=== PATIENT | female | born 1975 | race Caucasian/White ===

== ENCOUNTER 2017-04-21 17:42 | Emergency (ER) | payer OTHER ==
[2017-04-21 17:59] VITALS: BP 134/101
--- NOTE | 2017-04-21 20:06 | UC ---
Respiratory Complaint HPI - HPI Summary HPI Summary: Patient presents to the with CC of cough, congestion, runny nose, ear pain, eye pain, PRAJAPATI and nasal congestion. Patient is a smoker and immunocompromised - on Methotrexate for RA. She notes to symptoms starting 3 days ago, have consistently worsened. She has a hx of bronchitis. She notes to sick contacts but denies travel. Denies fevers, sweats and chills. She denies abdominal pain , N/V/C/D. Denies body aches. Flu shot not UTD. - History of Current Complaint Hx Obtained From: Patient Hx Last Menstrual Period: 04/06/17 ?: No Onset/Duration: Sudden Onset Timing: Constant Severity Initially: Mild Severity Currently: Mild Pain Intensity: 5 Pain Scale Used: 0-10 Numeric Character: Cough: Nonproductive Alleviating Factors: Bronchodilator Associated Signs And Symptoms: Positive: Dyspnea, Wheezing, URI, Nasal Congestion, Hoarseness, Sinus Discomfort - Risk Factors Pulmonary Embolism Risk Factors: Negative Cardiac Risk Factors: Negative Tuberculosis Risk Factors: Corticosteriod Use <Shila Buckner - Last Filed: 04/21/17 20:01> <Tasha Alegre - Last Filed: 04/21/17 21:48> - History of Current Complaint Chief Complaint: UCRespiratory Stated Complaint: COUGH Time Seen by Provider: 04/21/17 18:41 - Allergies/Home Medications Allergies/Adverse Reactions: Allergies Allergy/AdvReac Type Severity Reaction Status Date / Time Beef Allergy Allergy Mild Swelling Verified 04/21/17 17:59 Dust Mite Extract Allergy Mild Runny Nose Verified 04/21/17 17:59 Pollen Extract Allergy Mild Runny Nose Verified 04/21/17 17:59 Home Medications: Home Medications buPROPion TAB* [Wellbutrin TAB*] 100 mg PO DAILY 04/21/17 [History Confirmed 09/06] PMH/Surg Hx/FS Hx/Imm Hx Previously Healthy: Yes - Surgical History Surgical History: Yes Surgery Procedure, Year, and Place: 2007 Tubal Ligation. 03/2008 GALLBLADDER. 05/19/13 LEEP - Family History Known Family History: Positive: None - Social History Occupation: Employed Full-time Lives: With Family Alcohol Use: Occasionally Substance Use Type: None Smoking Status (MU): Light Every Day Tobacco Smoker Type: Cigarettes Amount Used/How Often: 1/2 ppd Length of Time of Smoking/Using Tobacco: 7 years Have You Smoked in the Last Year: No <Shila Buckner - Last Filed: 04/21/17 20:01> Review of Systems Constitutional: Negative Skin: Negative Eyes: Negative ENT: Sore Throat, Ear Ache, Nasal Discharge, Sinus Congestion, Sinus Pain/ Tenderness Respiratory: Shortness Of Breath, Cough Cardiovascular: Negative Motor: Negative Neurovascular: Negative Neurological: Negative Psychological: Negative Is Patient Immunocompromised?: No All Other Systems Reviewed And Are Negative: Yes <Shila Buckner - Last Filed: 04/21/17 20:01> Physical Exam Triage Information Reviewed: Yes Appearance: Well-Appearing, Well-Nourished Vital Signs: Initial Vital Signs Temp 97.9 F 04/21/17 17:54 Pulse 73 04/21/17 17:54 Resp 18 04/21/17 17:54 BP 134/101 04/21/17 17:54 Pulse Ox 98 04/21/17 17:54 Vital Signs Reviewed: Yes Eye Exam: Normal Eyes: Positive: Conjunctiva Clear ENT: Positive: Pharyngeal erythema, Nasal congestion, Nasal drainage. Negative : Tonsillar exudate, Muffled/hoarse voice Neck exam: Normal Neck: Positive: Supple, No Lymphadenopathy Respiratory Exam: Normal Respiratory: Positive: Chest non-tender Cardiovascular Exam: Normal Cardiovascular: Positive: RRR Musculoskeletal Exam: Normal Musculoskeletal: Positive: Strength Intact Psychological Exam: Normal Psychological: Positive: Normal Response To Family Skin Exam: Normal <Shila Buckner - Last Filed: 04/21/17 20:01> Vital Signs: Initial Vital Signs Temp 97.9 F 04/21/17 17:54 Pulse 73 04/21/17 17:54 Resp 18 04/21/17 17:54 BP 134/101 04/21/17 17:54 Pulse Ox 98 04/21/17 17:54 <Tasha Alegre - Last Filed: 04/21/17 21:48> UC Diagnostic Evaluation - Laboratory O2 Sat by Pulse Oximetry: 98 <Shila Buckner - Last Filed: 04/21/17 20:01> Respiratory Course/Dx - Course Course Of Treatment: Patient is evaluated for cough, congestion and runny nose. She denies fevers, sweats or chills. Appear not to be flu d/t no fever or abdominal symptoms. She is given z-burak and robitussin with codeine for cough worse at night and given albuterol for cough. she is OK with discharge. - Differential Dx/Diagnosis Differential Diagnosis/HQI/PQRI: Asthma, Bronchitis, Sinusitis Provider Diagnoses: Bronchitis <Shila Buckner - Last Filed: 04/21/17 20:01> Discharge <Shila Buckner - Last Filed: 04/21/17 20:01> <Tasha Alegre - Last Filed: 04/21/17 21:48> - Discharge Plan Condition: Stable Disposition: HOME Prescriptions: Albuterol HFA INHALER* [Ventolin HFA Inhaler*] 1 puff INH Q4H PRN #1 mdi PRN Reason: Cough Azithromyxin BURAK (NF) [Z-Burak (Zithromax) 250 mg tabs #6] 2 tab PO .TODAY, THEN 1 DAILY #6 tab guaiFENesin/CODIEN 100MG-10MG* [Robitussin AC 100Mg-10Mg*] 10 ml PO BEDTIME PRN #100 udc MDD 10 PRN Reason: Cough Patient Education Materials: Acute Bronchitis (ED) Referrals: Joann Zhang MD [Primary Care Provider] - Additional Instructions: Albuterol inhaler as needed for cough Z-burak as prescribed robitussin with codeine at bedtime Humidifier in the home will help Attestation Statement User Type: Provider - I was available for consult. This patient was seen by the FLORI. The patient was not presented to, seen by, or examined by me. -Hanh <Tasha Alegre - Last Filed: 04/21/17 21:48>
== END 2017-04-21 19:05 | disposition home or self-care (01) ==
LOC: UCEAST 17:42
DX: J40 Bronchitis, not specified as acute or chronic (principal); F17.210 Nicotine dependence, cigarettes, uncomplicated; M06.9 Rheumatoid arthritis, unspecified; Z87.09 Personal history of other diseases of the respiratory system
CPT/HCPCS: 99212; G0463

== ENCOUNTER 2017-08-13 19:53 | Emergency (ER) | payer OTHER ==
[2017-08-13 20:04] VITALS: BP 143/84
[2017-08-13] MEDS ORDERED: Acetaminophen TAB* 325 MG PO ONE (20:16)
[2017-08-13] MEDS ORDERED: Ondansetron ODT TAB* 4 MG PO ONE (20:16)
--- NOTE | 2017-08-13 20:44 | UC ---
Adam Aguilar Natalie, scribed for Tam Landry MD on 08/13/17 at 2023 . Respiratory Complaint HPI - HPI Summary HPI Summary: The pt is a 42 y/o F presenting to UC c/o cough with sudden onset starting last night. The pt states I feel awful. The pain is rated 7/10. 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 Pt additionally c/o vomiting, fever (102F) , chest pain, rib pain, and ear ache. - History of Current Complaint Chief Complaint: UCRespiratory Stated Complaint: FEVER Time Seen by Provider: 08/13/17 20:12 Hx Obtained From: Patient Hx Last Menstrual Period: 08/12/17 Onset/Duration: Sudden Onset, Lasting Hours - started last night, Still Present Severity Initially: Moderate Severity Currently: Moderate Pain Intensity: 7 Pain Scale Used: 0-10 Numeric Character: Cough: Nonproductive Associated Signs And Symptoms: Positive: Fever, Pleuritic Chest Pain, Sinus Discomfort - Allergies/Home Medications Allergies/Adverse Reactions: Allergies Allergy/AdvReac Type Severity Reaction Status Date / Time Beef Allergy Allergy Mild Swelling Verified 04/21/17 17:59 Dust Mite Extract Allergy Mild Runny Nose Verified 04/21/17 17:59 Pollen Extract Allergy Mild Runny Nose Verified 04/21/17 17:59 Home Medications: Home Medications Clobetasol Propionate Emulsion [Clobetasol Propionate] 08/13/17 [History] PMH/Surg Hx/FS Hx/Imm Hx - Surgical History Surgical History: Yes Surgery Procedure, Year, and Place: 2007 Tubal Ligation. 03/2008 GALLBLADDER. 05/19/13 LEEP - Family History Known Family History: Negative: Cardiac Disease, Diabetes - Social History Alcohol Use: Rare Substance Use Type: None Smoking Status (MU): Light Every Day Tobacco Smoker Type: Cigarettes Amount Used/How Often: 1/2 ppd Length of Time of Smoking/Using Tobacco: 7 years Have You Smoked in the Last Year: No Review of Systems Constitutional: Fever ENT: Ear Ache, Sinus Congestion Respiratory: Cough Cardiovascular: Chest Pain Gastrointestinal: Abdominal Pain - rib pain, Vomiting All Other Systems Reviewed And Are Negative: Yes Physical Exam Triage Information Reviewed: Yes Appearance: No Pain Distress, Ill-Appearing - mildly Vital Signs: Initial Vital Signs Temp 100.3 F 08/13/17 19:56 Pulse 120 08/13/17 19:56 Resp 16 08/13/17 19:56 BP 143/84 08/13/17 19:56 Pulse Ox 98 08/13/17 19:56 Vital Signs Reviewed: Yes Eye Exam: Normal ENT: Positive: Other - posterior pharynx erythema Neck: Positive: Supple, Nontender Respiratory: Positive: Lungs clear, Other: - CTA, breath sounds present Cardiovascular: Positive: RRR Abdomen Description: Positive: Nontender, Soft Bowel Sounds: Positive: Present Musculoskeletal Exam: Normal Musculoskeletal: Positive: Strength Intact, ROM Intact Neurological: Positive: Other: - normal, sensory/motor intact, A&O x3 Psychological: Positive: Other: - affect/mood appropriate Skin: Positive: Other - warm, color reflects adequate perfusion UC Diagnostic Evaluation - Laboratory O2 Sat by Pulse Oximetry: 98 Respiratory Course/Dx - Course Course Of Treatment: BP noted and advised to follow up with PCP. Medications reviewed. Allergies noted. - Differential Dx/Diagnosis Provider Diagnoses: INFLUENZA Discharge - Discharge Plan Condition: Stable Disposition: HOME Prescriptions: Ondansetron ODT TAB* [Zofran 4 MG Odt TAB*] 4 mg PO Q6H PRN #10 tab.odt PRN Reason: Nausea Oseltamivir CAP* [Tamiflu CAP*] 75 mg PO BID #10 cap Patient Education Materials: Influenza (ED) Referrals: Joann Zhang MD [Primary Care Provider] - Additional Instructions: FOLLOW UP WITH YOUR DOCTOR. GET RECHECKED FOR ANY WORSENING OF YOUR CONDITION OR QUESTIONS OR CONCERNS. The documentation as recorded by the Adam gresham Natalie accurately reflects the service I personally performed and the decisions made by me, Tam Landry MD.
== END 2017-08-13 20:48 | disposition home or self-care (01) ==
LOC: UCEAST 19:53
DX: J11.1 Influenza due to unidentified influenza virus with other respiratory manifestations (principal); Z90.49 Acquired absence of other specified parts of digestive tract; F17.210 Nicotine dependence, cigarettes, uncomplicated
CPT/HCPCS: 87502; 99212; A9270-GY; G0463

== ENCOUNTER 2017-09-24 09:42 | Emergency (ER) | payer OTHER ==
--- OUTSIDE RECORDS SUMMARY | 2017-09-24 10:10 | XMS REPORT ---
:1975 Author Organization [facility]ly [facility] Address [address] [place] [address] Care Team Providers Name Role Phone Mayra Darden Unavailable Unavailable PROBLEMS Type Condition ICD9-CM FLF15-XT Onset Condition SNOMED Code Code Code Dates Status Problem Polyp of corpus N84.0 Active 59532829 uteri Problem Dysmenorrhea, N94.6 Active 342643083 unspecified Problem Nicotine dependence, F17.210 Active 885049474 cigarettes, uncomplicated Problem Family history of Z80.49 Active 558340860 malignant neoplasm of other genital organs Problem Frequency of R35.0 Active 375019204 micturition Problem Dysuria R30.0 Active 08165652 Problem Excessive and N92.0 Active 307164503 frequent menstruation with regular cycle Problem Other rheumatoid M05.89 Active 07574687 arthritis with rheumatoid factor of multiple sites Problem 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 103 Aug, Excessive and frequent OBGYN [facility], menstruation with regular [place] [id number] cycle N92.0 ; Encounter for routine checking of intrauterine contraceptive device Z30.431 and Family history of malignant neoplasm of other genital organs Z80.49 [facility] 103 Jul, OBGYN [place] [id number] [facility] 103 Jul, Encounter for OBGYN [facility], gynecological examination [place] [id number] (general) (routine) without abnormal findings Z01.419 ; Frequency of micturition R35.0 ; Encounter for screening mammogram for malignant neoplasm of breast Z12.31 ; Unspecified urinary incontinence R32 ; Excessive and frequent menstruation with regular cycle N92.0 and Nicotine dependence, cigarettes, uncomplicated F17.210 [facility] Jun, [facility]YN [facility] [place] [id number] [facility] [address] Jun, Encounter for OBGYN [address] [place], gynecological examination [place] [id number] (general) (routine) without abnormal findings Z01.419 ; Encounter for screening for malignant neoplasm of cervix Z12.4 ; Encounter for screening mammogram for malignant neoplasm of breast Z12.31 and Other rheumatoid arthritis with rheumatoid factor of multiple sites M05.89 [facility] 103 Aug, OBGYN [facility], [place] [id number] [facility] 103 Aug, Abnormal uterine and OBGYN [facility], vaginal bleeding, [place] [id number] unspecified N93.9 ; Encounter for routine checking of intrauterine contraceptive device Z30.431 and Unspecified ovarian cysts N83.20 [facility] 103 Aug, Unspecified ovarian cysts OBGYN [facility], N83.20 and Encounter for [place] [id number] routine checking of intrauterine contraceptive device Z30.431 [facility] Jun, Abnormal uterine and OBGYN [facility], vaginal bleeding, [place] [id number] unspecified N93.9 ; Encounter for routine checking of intrauterine contraceptive device Z30.431 and Unspecified ovarian cysts N83.20 [facility] 103 Jun, Abnormal uterine and OBGYN [facility], vaginal bleeding, [place] [id number] unspecified N93.9 ; Encounter for routine checking of intrauterine contraceptive device Z30.431 and Unspecified ovarian cysts N83.[address] 02 Jun, [address] [place], gynecological examination [place] [id number] (general) (routine) without abnormal findings Z01.419 ; Encounter for screening for malignant neoplasm of cervix Z12.4 and Abnormal uterine and vaginal bleeding, unspecified N93.9 [facility] 103 25 May, [facility] examination [place] [id number] (general) (routine) without abnormal findings Z01.[address] Feb, Menorrhagia [address] [place], Dysmenorrhea 625.3 [place] [id number] [facility] 103 Jan, [facility] [place] [id number] [facility] 103 Dec, [facility]AL AND/[facility], REININSERTION V25.42 [place] [id number] [facility] November, CONTRACEPTIVE MANGMT NOS [facility], V25.9 [place] [id number] [facility] 103 November, Menorrhagia 626.2 ; OBN [facility], Abnormal Pap smear cervix [place] [id number] with high-grade squamous intraepithelial lesion 795.04 and Dysmenorrhea 625.3 [facility] 103 Aug, Menorrhagia 626.2 ; OBGYN [facility], Dysmenorrhea 625.3 and [place] [id number] Tobacco use disorder 305.1 [facility] 103 May, Menorrhagia 626.2 ; PAP [facility], SMEAR W/O ACCOUNT RETENTION REPRESENTATIVE EXAM V76.2 ; [place] [id number] Endometrial polyp 621.0 ; Dysmenorrhea 625.3 ; Tobacco use disorder 305.1 and CERVICAL DYSPLASIA MILD (PATRICIA II) 622.12 [facility] 103 May, OBGYN [facility], [place] [id number] [facility] 103 May, Menorrhagia 626.2 ; OBGYN [facility], Endometrial polyp 621.0 ; [place] [id number] Dysmenorrhea 625.3 ; Tobacco use disorder 305.1 and CERVICAL DYSPLASIA MILD (PATRICIA II) 622.12 [facility] 103 Feb, Menorrhagia 626.2 ; OBGYN [facility], Endometrial polyp 621.0 ; [place] [id number] Dysmenorrhea 625.3 and Tobacco use disorder 305.1 [facility] [address] [place], Jan, Medical Center [place] [id number] [facility] 103 Jan, Menorrhagia 626.2 ; OBGYN [facility], Endometrial polyp 621.0 ; [place] [id number] Dysmenorrhea 625.3 and Tobacco use disorder 305.1 [facility] 103 Jan, OBGYN [facility], [place] [id number] [facility] 103 Jan, [place] [id number] [place] [facility] Jan, Menorrhagia 626.2 ; OBN [address] [place], Dysmenorrhea 625.3 and [place] [id number] Tobacco use disorder 305.1 [place] [facility] [address] Dec, Menorrhagia 626.2 ; OBGYN [address] [place], Dysmenorrhea 625.3 and [place] [id number] Tobacco use disorder 305.1 [facility] 103 Dec, Menorrhagia 626.2 ; OBGYN [facility], Dysmenorrhea 625.3 and [place] [id number] Tobacco use disorder 305.1 [facility] 103 Dec, Menorrhagia 626.2 ; OBGYN [facility], Dysmenorrhea 625.3 and [place] [id number] Endometrial polyp 621.0 [place] [facility] 103 10 Dec, 2013 OBGYN [place], [place] [id number] [facility] 103 10 Dec, 2013 Menorrhagia 626.2 ; OBGYN [facility], Dysmenorrhea 625.3 and [place] [id number] Tobacco use disorder 305.1 [place] [facility] 103 10 Dec, 2013 Menorrhagia 626.2 and OBGYN [facility], Dysmenorrhea 625.3 [place] [id number] [place] [facility] [address] [facility] November, CERVICAL DYSPLASIA MILD [address]BGYN [address] [place], (PATRICIA II) 622.12 ; [place] [id number] Menorrhagia 626.2 and Dysmenorrhea 625.3 [place] [facility] [address] [place] [facility] May, CERVICAL DYSPLASIA MILD [address]BGYN [address] [place], (PATRICIA II) 622.12 [place] [id number] [facility] [address] [place], Apr, Medical Center [place] [id number] [facility] 103 Apr, CERVICAL D[facility]PLASIA MILD [facility], (PATRICIA II) 622.12 [place] [id number] [facility] 103 Apr, [place] [id number] [facility] 103 Apr, [place] [id number] [facility] 103 Apr, [place] [id number] [facility] 103 Apr, CERVICAL DYSPLASIA MILD [facility], (PATRICIA II) 622.12 and [place] [id number] HEMATURIA NOS 599.70 [place] [facility] 103 Mar, [place] [id number] [place] [facility] 103 Mar, Vulvadynia 625.9 and OBGYN [facility], Dysuria 788.1 [place] [id number] [facility] 103 20 Mar, 2013 Abnormal Pap smear of OBGYN [facility], cervix with high-grade [place] [id number] squamous intraepithelial lesio 795.04 ; FM HX OVARY MALIGNANCY V16.41 and FM HX GENITAL MALIG NEC V16.49 IMMUNIZATIONS No Known Immunizations SOCIAL HISTORY Never Assessed REASON FOR REFERRAL FUNCTIONAL STATUS PLAN OF CARE Activity Details Follow Up annual 08-08, lab slip Reason: Pending Test CBC VITAL SIGNS Height 64 in 2017-09-16 Weight 156 lbs 2017-09-16 BMI 26.77 kg/m2 2017-09-16 Blood pressure systolic 122 mm Hg 2017-09-16 Blood pressure diastolic 80 mm Hg 2017-09-16 MEDICATIONS Medication Instructions Dosage Frequency Start End Duration Status Date Date Mirena 52 mg by intrauteral 1 ea Active administration once clobetasol applied topically 1 nolan 12h Active topical 0.05% 2 times a day Flonase 50 intranasally BID 1 12h Active mcg/inh spray(s) methotrexate orally once a week 6 tab(s) Active Wellbutrin 100 orally qd 1 tab(s) 24h 30 day(s) Active mg PROCEDURES No Known procedures RESULTS No Results REASON FOR VISIT fu to us for heavy periods MEDICAL (GENERAL) HISTORY Type Description Date Medical History RA Medical History Depression/ Axiety Medical History Chronic Pain in joints Medical History hematuria - sees urologist Medical History psoriatic arthritis Surgical History cholecystectomy Surgical History tubal ligation Surgical History LEEP 05-19-13 Surgical History hysteroscopy/D&C/polypectomy/myometrial sampling Hospitalization History Childbirth 1998 Hospitalization History childbirth 2000 Hospitalization History childbirth 2005 Hospitalization History childbirth 2007
[2017-09-24 10:20] VITALS: BP 136/91
--- NOTE | 2017-09-24 10:26 | UC ---
Throat Pain/Nasal Bon HPI - HPI Summary HPI Summary: Pt presents with sore throat since last night - getting worse today. She had a low grade fever last night, but has not checked it today. Feels significant pain with swallowing, but is able to eat and drink. No cough, SOB, chest pain. - History of Current Complaint Chief Complaint: UCGeneralIllness Stated Complaint: SORE THROAT EAR PAIN Time Seen by Provider: 09/24/17 10:25 Hx Obtained From: Patient Hx Last Menstrual Period: 09/17/17 ?: No Onset/Duration: Sudden Onset Severity: Severe Pain Intensity: 9 Pain Scale Used: 0-10 Numeric - Allergies/Home Medications Allergies/Adverse Reactions: Allergies Allergy/AdvReac Type Severity Reaction Status Date / Time Beef Containing Products Allergy Mild Swelling Verified 09/24/17 10:10 pollen extracts Allergy Mild Runny Nose Verified 09/24/17 10:10 dust mites Allergy Mild Runny Nose Uncoded 09/24/17 10:10 PMH/Surg Hx/FS Hx/Imm Hx Respiratory History: Asthma Psychological History: Anxiety, Depression - Surgical History Surgical History: Yes Surgery Procedure, Year, and Place: 2007 Tubal Ligation. 03/2008 GALLBLADDER removal. 05/19/13 LEEP - Family History Known Family History: Positive: None Negative: Cardiac Disease, Diabetes - Social History Occupation: Employed Full-time Lives: With Family Alcohol Use: Rare Substance Use Type: None Smoking Status (MU): Light Every Day Tobacco Smoker Type: Cigarettes Amount Used/How Often: 1/2 ppd Length of Time of Smoking/Using Tobacco: 7 years Have You Smoked in the Last Year: No Review of Systems Constitutional: Fever Skin: Negative Eyes: Negative ENT: Sore Throat Respiratory: Negative Cardiovascular: Negative Gastrointestinal: Negative Neurological: Negative Psychological: Negative All Other Systems Reviewed And Are Negative: Yes Physical Exam - Summary Physical Exam Summary: GENERAL: NAD. WDWN. No pain distress. SKIN: No rashes, sores, ulcers, masses, lesions. HEENT: Head: AT/NC Eyes: Conjunctiva clear without inflammation or discharge. Ears: Hearing grossly normal. TMs intact, no bulging, erythema, or edema. Nose: Nasal mucosa pink and moist. NTTP maxillary and frontal sinus. Throat: Posterior oropharynx moderate erythema and 3+ tonsillar enlargement with moderate exudates. Uvula midline. No hoarse voice or muffled voice. NECK: Supple. TTP anterior LAD. CHEST: CTAB. No r/r/w. No accessory muscle use. Breathing comfortably and in no distress. CV: RRR. Without m/r/g. Pulses intact. Brisk cap refill. NEURO: Alert. CN II-XII grossly intact. PSYCH: Age appropriate behavior. Triage Information Reviewed: Yes Vital Signs: Initial Vital Signs Temp 98.8 F 09/24/17 10:13 Pulse 128 09/24/17 10:13 Resp 16 09/24/17 10:13 BP 136/91 09/24/17 10:13 Pulse Ox 98 09/24/17 10:13 Throat Pain/Nasal Course/Dx - Course Course Of Treatment: POC strep positive. Amoxicillin. - Differential Dx/Diagnosis Provider Diagnoses: Strep pharyngitis Discharge - Discharge Plan Condition: Stable Disposition: HOME Prescriptions: Amoxicillin PO (*) [Amoxicillin 500 MG CAP*] 500 mg PO Q12H #20 cap Patient Education Materials: Strep Throat (DC) Forms: *Work Release Referrals: Joann Zhang MD [Primary Care Provider] - Additional Instructions: If you develop a fever, shortness of breath, chest pain, new or worsening symptoms - please call your PCP or go to the ED. Your blood pressure was high at todays visit. Please see your primary provider within 4 weeks for recheck and re-evaluation.
== END 2017-09-24 11:08 | disposition home or self-care (01) ==
LOC: UCEAST 09:42
DX: J02.0 Streptococcal pharyngitis (principal); J45.909 Unspecified asthma, uncomplicated; F41.9 Anxiety disorder, unspecified; F32.9 Major depressive disorder, single episode, unspecified; F17.210 Nicotine dependence, cigarettes, uncomplicated
CPT/HCPCS: 87651; 99212; G0463

== ENCOUNTER 2018-04-02 12:54 | Emergency (ER) | payer BC, OTHER ==
[2018-04-02 13:09] VITALS: BP 124/66
--- NOTE | 2018-04-02 13:31 | UC ---
Skin Complaint HPI - HPI Summary HPI Summary: 42-year-old female with complaint of potential insect bite. stung by an unknown insect on neck took benadryl 25mg po at 12n and arrives feeling off. Denies any fever as well as denies any discharge from the area with the affected insect bite. She does have a history of bee sting allergy where she does get swelling at the site where the sting took place but never previously needed to use an EpiPen or ever went into anaphylaxis. Bite that she had could have been on the but she is not sure it could've been a different insect she never saw it. She is concerned as her mother was concerned for her that this could worsen but this bite occurred almost 3 hours ago and she took Benadryl and feels fine and has no problems breathing and no significant swelling on the right part of the neck where she was bit or stung. [ End ] - History of Current Complaint Chief Complaint: UCGeneralIllness Time Seen by Provider: 04/02/18 13:28 Stated Complaint: INSECT BITE Hx Obtained From: Patient Hx Last Menstrual Period: 03/20/18 Onset/Duration: Sudden Onset Pain Intensity: 6 Character: Swelling, Pruritus Related History: Possible Reaction to: Insect - Allergy/Home Medications Allergies/Adverse Reactions: Allergies Allergy/AdvReac Type Severity Reaction Status Date / Time Beef Containing Products Allergy Mild Swelling Verified 04/02/18 13:07 pollen extracts Allergy Mild Runny Nose Verified 04/02/18 13:07 dust mites Allergy Mild Runny Nose Uncoded 04/02/18 13:07 Review of Systems Constitutional: Negative Skin: Negative, Other - insect bite Eyes: Negative ENT: Negative Respiratory: Negative Cardiovascular: Negative Gastrointestinal: Negative Genitourinary: Negative Motor: Negative Neurovascular: Negative Musculoskeletal: Negative Neurological: Negative Psychological: Negative Is Patient Immunocompromised?: No All Other Systems Reviewed And Are Negative: Yes PMH/Surg Hx/FS Hx/Imm Hx Previously Healthy: Yes - Surgical History Surgical History: Yes Surgery Procedure, Year, and Place: 2007 Tubal Ligation. 03/2008 GALLBLADDER removal. 05/19/13 LEEP - Family History Known Family History: Positive: None Negative: Cardiac Disease, Diabetes - Social History Occupation: Employed Full-time Lives: With Family Alcohol Use: Rare Substance Use Type: None Smoking Status (MU): Former Smoker Type: Cigarettes Amount Used/How Often: 1/2 ppd Length of Time of Smoking/Using Tobacco: 7 years Have You Smoked in the Last Year: No Physical Exam Triage Information Reviewed: Yes Appearance: Well-Appearing, No Pain Distress, Well-Nourished Vital Signs: Initial Vital Signs Temp 98 F 04/02/18 13:04 Pulse 91 04/02/18 13:04 Resp 16 04/02/18 13:04 BP 124/66 04/02/18 13:04 Pulse Ox 100 04/02/18 13:04 Vital Signs Reviewed: Yes Eyes: Positive: Conjunctiva Clear ENT: Positive: Hearing grossly normal Neck exam: Normal Neck: Positive: Supple, Nontender, No Lymphadenopathy Respiratory Exam: Normal Respiratory: Positive: Chest non-tender, Lungs clear, Normal breath sounds, No respiratory distress. Negative: Respiratory distress, Decreased breath sounds, Crackles, Rhonchi, Stridor, Wheezing Cardiovascular Exam: Normal Musculoskeletal Exam: Normal Neurological Exam: Normal Psychological Exam: Normal Skin Exam: Normal Skin: Positive: Other - Small punctate less than 1 mm barely noticeable lesion right lateral neck. no hives, no induration, no streaking, no bleeding no ecchymosis. Course/Dx - Course Course Of Treatment: At this time no respiratory distress or indication for steroids or EpiPen. Use Benadryl Entocort pack and that has helped so far. Additional insect bite or sting occurred almost 3 hours ago and she is doing just fine with no respiratory distress and normal vital signs. I advised to continue with cool pack and Benadryl. Patient declined steroids and I do not think that she necessarily needs and at this time. She is asking for an EpiPen and we will give her one. - Differential Diagnoses - Skin Complaint Differential Diagnoses: Allergic Reaction, Local Allergic Reaction - Diagnoses Provider Diagnoses: insect bite / sting right lateral neck Discharge - Sign-Out/Discharge Documenting (check all that apply): Patient Departure All imaging exams completed and their final reports reviewed: No Studies - Discharge Plan Condition: Good Disposition: HOME Prescriptions: EPINEPHrine [Epipen 2-Burak] 0.3 mg IM SEE INSTRUCTIONS #1 inj Patient Education Materials: Insect Bite or Sting (ED) Referrals: Brianna Epstein MD [Primary Care Provider] - 4 Days Additional Instructions: Please continue with Benadryl as we discussed and if there are any concerns return for further evaluation. - Billing Disposition and Condition Condition: GOOD Disposition: Home
== END 2018-04-02 14:15 | disposition home or self-care (01) ==
LOC: UCEAST 12:54
DX: S10.96XA Insect bite of unspecified part of neck, initial encounter (principal); W57.XXXA Bitten or stung by nonvenomous insect and other nonvenomous arthropods, initial encounter; Y93.9 Activity, unspecified; Y92.9 Unspecified place or not applicable; Z87.891 Personal history of nicotine dependence
CPT/HCPCS: 99212; G0463

== ENCOUNTER 2018-07-22 19:25 | Emergency (ER) | payer BC ==
[2018-07-22 20:15] VITALS: BP 137/96
--- NOTE | 2018-07-22 20:23 | UC ---
Throat Pain/Nasal Bon HPI - HPI Summary HPI Summary: uri, body aches, fever for 1 day - History of Current Complaint Chief Complaint: UCGeneralIllness Stated Complaint: URI Time Seen by Provider: 07/22/18 20:10 Hx Obtained From: Patient Hx Last Menstrual Period: 03/20/18 ?: No Onset/Duration: Sudden Onset, Lasting Days - 1, Still Present Pain Intensity: 8 Pain Scale Used: 0-10 Numeric Cough: None Associated Signs & Symptoms: Positive: Nasal Discharge, Fever - Allergies/Home Medications Allergies/Adverse Reactions: Allergies Allergy/AdvReac Type Severity Reaction Status Date / Time Beef Containing Products Allergy Mild Swelling Verified 07/22/18 20:15 pollen extracts Allergy Mild Runny Nose Verified 07/22/18 20:15 dust mites Allergy Mild Runny Nose Uncoded 07/22/18 20:15 Home Medications: Home Medications Cetirizine* [ZyrTEC 10 MG TAB*] 10 mg PO DAILY 07/22/18 [History Confirmed 07/22] Cholecalciferol TAB* [Vitamin D TAB*] 1,000 units PO DAILY 07/22/18 [History Confirmed 07/22/18] buPROPion TAB* [Wellbutrin TAB*] 100 mg PO DAILY 07/22/18 [History Confirmed 09/08] PMH/Surg Hx/FS Hx/Imm Hx Previously Healthy: No Psychological History: Depression - Surgical History Surgical History: Yes Surgery Procedure, Year, and Place: 2007 Tubal Ligation. 03/2008 GALLBLADDER removal. 05/19/13 LEEP - Family History Known Family History: Positive: None Negative: Cardiac Disease, Diabetes - Social History Occupation: Employed Full-time Lives: With Family Alcohol Use: Rare Substance Use Type: None Smoking Status (MU): Former Smoker Type: Cigarettes Amount Used/How Often: 1/2 ppd Length of Time of Smoking/Using Tobacco: 7 years Have You Smoked in the Last Year: No Review of Systems All Other Systems Reviewed And Are Negative: Yes Constitutional: Positive: Fever, Chills, Fatigue Skin: Positive: Negative Eyes: Positive: Negative ENT: Positive: Sore Throat, Ear Ache, Nasal Discharge Respiratory: Positive: Cough Cardiovascular: Positive: Negative Gastrointestinal: Positive: Negative Genitourinary: Positive: Negative Motor: Positive: Negative Neurovascular: Positive: Negative Musculoskeletal: Positive: Arthralgia, Myalgia Neurological: Positive: Negative Psychological: Positive: Negative Is Patient Immunocompromised?: No Physical Exam Triage Information Reviewed: Yes Appearance: No Pain Distress, Well-Nourished, Ill-Appearing - mild Vital Signs: Initial Vital Signs Temp 98.6 F 07/22/18 20:11 Pulse 103 07/22/18 20:11 Resp 20 07/22/18 20:11 BP 137/96 07/22/18 20:11 Pulse Ox 96 07/22/18 20:11 Vital Signs Reviewed: Yes Eye Exam: Normal Eyes: Positive: Conjunctiva Clear ENT Exam: Normal ENT: Positive: Normal ENT inspection, Hearing grossly normal, Pharynx normal, TMs normal, Uvula midline. Negative: Nasal congestion, Trismus, Muffled voice, Hoarse voice, Dental tenderness, Sinus tenderness Dental Exam: Normal Neck exam: Normal Neck: Positive: Supple, Nontender, No Lymphadenopathy Respiratory Exam: Normal Respiratory: Positive: Chest non-tender, Lungs clear, Normal breath sounds, No respiratory distress, No accessory muscle use Cardiovascular Exam: Normal Cardiovascular: Positive: RRR, No Murmur, Pulses Normal, Brisk Capillary Refill Musculoskeletal Exam: Normal Musculoskeletal: Positive: Strength Intact, ROM Intact, No Edema Neurological Exam: Normal Neurological: Positive: Alert, Muscle Tone Normal Psychological Exam: Normal Skin Exam: Normal Diagnostics - Laboratory Diagnostic Studies Completed/Ordered: influenza a/b and strep (-) Throat Pain/Nasal Course/Dx - Course Assessment/Plan: tylenol, ibuprofen, otc symptom relief, rest follow with pcp prn - Differential Dx/Diagnosis Provider Diagnosis: URI (upper respiratory infection), Viral illness Discharge - Sign-Out/Discharge Documenting (check all that apply): Patient Departure All imaging exams completed and their final reports reviewed: No Studies - Discharge Plan Condition: Stable Disposition: HOME Patient Education Materials: Upper Respiratory Infection (DC), Viral Syndrome ( ED) Forms: *Work Release Referrals: Brianna Epstein MD [Primary Care Provider] - If Needed - Billing Disposition and Condition Condition: STABLE Disposition: Home
== END 2018-07-22 20:50 | disposition home or self-care (01) ==
LOC: UCEAST 19:25
DX: J06.9 Acute upper respiratory infection, unspecified (principal); B34.9 Viral infection, unspecified; F32.9 Major depressive disorder, single episode, unspecified; Z91.018 Allergy to other foods; Z91.048 Other nonmedicinal substance allergy status; Z79.899 Other long term (current) drug therapy; Z87.891 Personal history of nicotine dependence
CPT/HCPCS: 87651; 99201; G0463